=== PATIENT | female | born 1975 | race African-American/Black ===

== ENCOUNTER 2017-09-14 16:30 | Emergency (ER) | payer BC ==
[~2017-09-14] VITALS: Ht 160 cm; Wt 55.6 kg
[2017-09-14] MEDS ORDERED: NAPROSYN500 MG PO (16:55)
[2017-09-14] MEDS ORDERED: ROBAXIN750 MG PO (16:55)
[2017-09-14 17:14] VITALS: BP 142/86
== END 2017-09-14 17:15 | disposition home or self-care (01) ==
LOC: RME 16:30 → EME 16:30 → RME 17:15
PROC: 3E023BZ Introduction of Anesthetic Agent into Muscle, Percutaneous Approach (ICD-10-PCS; principal; 2017-09-14)
DX: M43.6 Torticollis (principal); M62.830 Muscle spasm of back
CPT/HCPCS: 99281; 99283